=== PATIENT | female | born 1980 | race Caucasian/White ===

== ENCOUNTER 2019-03-28 08:00 | Outpatient (CLI) | payer OTHER ==
[2013-03-11 10:02] VITALS: BMI 23.6
[~2019-03-28 08:00] MED LIST: ADIPEX-P37.5 MG PO; PERCOCET 10/3251 TA1 PO
== END 2019-03-28 23:59 | disposition home or self-care (01) ==
LOC: D.MAMMO 08:00
PROVIDERS: ATTEND Emergency Medicine
DX: Z12.31 Encounter for screening mammogram for malignant neoplasm of breast (principal)

== ENCOUNTER → 2019-04-13 09:55 | Outpatient (CLI) | payer OTHER ==
[2013-03-11 10:02] VITALS: BMI 23.6
== END | disposition home or self-care (01) ==
LOC: D.MAMMO 09:55
PROVIDERS: ATTEND Family Medicine
DX: R92.8 Other abnormal and inconclusive findings on diagnostic imaging of breast (principal)